=== PATIENT | female | born 1970 | race Caucasian/White ===

== ENCOUNTER 2020-03-03 06:03 | Inpatient (IN) ==
--- NOTE | 2020-02-20 15:57 | PAT Medication Instructions ---
Medication Instructions Date of Service February 20, 2020 Home Medications alprazolam 1 mg PO BID bupropion HCl 150 mg PO QAM cyanocobalamin (vitamin B-12) 1,000 mcg IM DIRECTED lactulose [Constulose] 15 ml PO DAILY PRN plecanatide [Trulance] 3 mg PO QAM rizatriptan 10 mg PO DIRECTED PRN sertraline 150 mg PO QAM zolpidem [Ambien] 10 mg PO HS Continue as directed cyanocobalamin (vitamin B-12) 1,000 mcg IM DIRECTED DO NOT take the morning of surgery lactulose [Constulose] 15 ml PO DAILY PRN plecanatide [Trulance] 3 mg PO QAM Take morning of surgery With a small sip of water, OTHERWISE NOTHING TO EAT OR DRINK AFTER MIDNIGHT: alprazolam 1 mg PO BID bupropion HCl 150 mg PO QAM plecanatide [Trulance] 3 mg PO QAM rizatriptan 10 mg PO DIRECTED PRN (if needed) sertraline 150 mg PO QAM Take evening before surgery alprazolam 1 mg PO BID lactulose [Constulose] 15 ml PO DAILY PRN (if needed) rizatriptan 10 mg PO DIRECTED PRN (if needed) zolpidem [Ambien] 10 mg PO HS Other Notes If you have any questions please call us at [phone] or [phone] or [phone] or [phone]
--- NOTE | 2020-02-21 11:15 | Anesthesiology Consultation ---
Date of Service February 21, 2020 Assessment & Plan (1) Encounter for pre-operative examination: COVID Status: As of 02/20 PAT assessment, patient denies travel to endemic area, known exposure/sick contacts, or symptoms of COVID19. Preoperative COVID19 testing to be completed prior to surgery, pt unsure where/when. Chart Review Chart Review: Acceptable Risk for Surgery and Patient seen in Pre Admission Testing Teaching & Discussion Instructed NPO after midnight before surgery, except medications with 15 cc of water. Medication instructions provided according to the [facility] guidelines. History Surgery Operation Date: 03/03/20 12:55 Proposed Procedures p C6-C7 Anterior Cervical Discectomy and Fusion, Spinal Cord Monitoring - Dale Mcarthur DO Height/Weight Height: 5 ft 3 in Weight: 72.8 kg Allergies Allergy/AdvReac Type Severity Reaction Status Date / Time hydroxychloroquine Allergy shortness Verified 02/20/20 10:16 [From Plaquenil] of breath morphine Allergy Hives Verified 02/20/20 10:16 naproxen Allergy Tachycardia Verified 02/20/20 10:16 Medications Home Medications Medication Instructions Recorded Confirmed Last Taken alprazolam 1 mg PO BID 02/20/20 02/20/20 Unknown bupropion HCl 150 mg PO QAM 02/20/20 02/20/20 Unknown cyanocobalamin (vitamin B-12) 1,000 mcg IM DIRECTED 02/20/20 02/20/20 Unknown lactulose [Constulose] 15 ml PO DAILY PRN 02/20/20 02/20/20 Unknown plecanatide [Trulance] 3 mg PO QAM 02/20/20 02/20/20 Unknown rizatriptan 10 mg PO DIRECTED PRN 02/20/20 02/20/20 Unknown sertraline 150 mg PO QAM 02/20/20 02/20/20 Unknown zolpidem [Ambien] 10 mg PO HS 02/20/20 02/20/20 Unknown Past Medical History Medical History Anxiety Degenerative disc disease Fibromyalgia GERD (gastroesophageal reflux disease) no meds, controlled. HCA B27 positive Hx of colonic polyps Lupus Migraine Osteoarthritis Presence of neurostimulator INSTRUCTED TO BRING CONTROL Spinal stenosis Exercise / Class Metabolic Activity III < 4 Walking/Shop/Light housework (Denies CP or SOB with ambulation on one level) Past Family History Family History Mother Diabetes Grandmother (Maternal) Diabetes Past Surgical History Surgical History History of carpal tunnel release right History of cholecystectomy History of colonoscopy History of esophagogastroduodenoscopy (EGD) History of hysterectomy History of tonsillectomy History of tooth extraction wisdom teeth Hx of foot surgery right Hx of neck surgery hardware to possibly C4-5? can't turn to either side very well. Can't touch chest with chin. pain with leaning head back Past Anesthesia History No Hx of Anesthesia Complications and No Family Hx of Anesthesia Complications History of PONV No Hx of PONV and Hx of Motion Sickness Social History Smoking Status: Former smoker Do You Dip or Chew Tobacco: No Smoking End Date: OVER A YEAR Hx Alcohol Use: No Hx Substance Use: No substance use type: does not use Review of Systems Pt denies any recent chest pain, shortness of breath, palpitations, cough, fever or URI. Physical Exam Vital Signs BP: 141/93 P: 71bpm SPO2: 100% RA T: 98.1 F R: 16 ENMT Mouth: no dental restorations, no chipped teeth and no loose teeth Thyromental Distance: > or= 3.5 Finger Breadths (3.5) Mallampati Class: II Neck normal visual inspection and + limited neck extension Respiratory normal respiratory effort Auscultation: lungs clear to auscultation bilaterally Cardiovascular Rate/Rhythm: regular rate and regular rhythm Heart Sounds: no murmur Extremities: no edema Testing Laboratory Results 02/21/20 11:28 02/21/20 11:28 PT 10.3 Seconds (9.0-12.0) 02/21/20 11:28 INR 1.0 (0.9-1.1) 02/21/20 11:28 APTT 31.7 Seconds (21.0-31.0) H 02/21/20 11:28 Urine Color Yellow 02/21/20 Unknown Urine Appearance Clear (Clear) 02/21/20 Unknown Urine pH 5.0 (4.5-7.5) 02/21/20 Unknown Ur Specific [place]cl[place] 1.011 (1.000-1.030) 02/21/20 Unknown Urine Protein Negative (Negative) 02/21/20 Unknown Urine Glucose (UA) Negative (Negative) 02/21/20 Unknown Urine Ketones Negative (Negative) 02/21/20 Unknown Urine Nitrite Negative (Negative) 02/21/20 Unknown Ur Leukocyte Esterase Negative (Negative) 02/21/20 Unknown Blood Type B Positive 02/21/20 11:28 Antibody Screen NEGATIVE 02/21/20 11:28 Electrocardiogram Date: 02/21/20 Findings: + NSR @ (71bpm) Chest X-Ray Date: 02/21/20 Findings: + NAD
--- NOTE | 2020-02-21 12:09 | XRay Report ---
XR chest Pre-admission PA/Lat CLINICAL HISTORY: Preoperative chest COMPARISON STUDY: No previous studies for comparison. FINDINGS: The cardiac and mediastinal contours are normal. There is no evidence of focal pulmonary co nsolidation. There is no evidence of failure. No pleural effusions are visualized.[Note is made of a spinal stimulator. There are postsurgical changes present within the cervical spine. There are right upper quadrant surgical clips consistent with a prior cholecystectomy. IMPRESSION: No active disease in the chest. ACT 112: Negative or not required by law. Electronically signed by: Bennie Barth M.D. 02/21/2020 12:08 PM
[2020-02-21 13:00] LABS: Basophils # (auto) 0.09 K/uL (0-0.2); Basophils % (auto) 1.1 %; Eosinophils % (auto) 4.9 %; Hematocrit (blood only) 37.2 % (37-47); Immature Granulocytes # (auto) 0.01 K/uL (0.00-0.02); Immature Granulocytes % (auto) 0.1 %; Lymphocytes # (auto) 3.29 K/uL (1.2-3.4); Lymphocytes % (auto) 40.2 %; Mean Corpuscular Hemoglobin 30.2 pg (25-34); Mean Corpuscular Hgb Conc 32.3 g/dL (32-36); Mean Corpuscular Volume 93.5 fL (80-100); Mean Platelet Volume 11.3 fL (7.4-10.4); Monocytes # (auto) 0.62 K/uL (0.11-0.59); Monocytes % (auto) 7.6 %; Neutrophils # (auto) 3.77 K/uL (1.4-6.5); Neutrophils % (auto) 46.1 %; Platelet Count 369 K/uL (130-400); RDW Coefficient of Variation 14.3 % (11.5-14.5); RDW Standard Deviation 48.9 fL (36.4-46.3); Red Blood Count 3.98 M/uL (4.2-5.4); White Blood Count 8.18 K/uL (4.8-10.8)
[2020-02-21 13:13] LABS: Appearance Urine Clear (Clear); Bilirubin Urine Negative (Negative); Blood Urine Negative (Negative); Color Urine Yellow; Glucose Urine UA Negative (Negative); Ketones Urine Negative (Negative); Leukocyte Esterase Urine Negative (Negative); Nitrite Urine Negative (Negative); Protein Urine Negative (Negative); Specific Gravity Urine 1.011 (1.000-1.030); Urobilinogen Urine Negative (Negative)
[2020-02-21 13:23] LABS: BUN Creatinine Ratio 11.1 (10-20); Calcium 8.9 mg/dl (8.5-10.1); Creatinine Clr Calc Pharmacy 56.1 ml/min; Est GFR (Non-African American) 55.2; Potassium 4.1 mmol/L (3.5-5.1)
[2020-02-21 13:24] LABS: Partial Thromboplastin Ratio 1.1; Partial Thromboplastin Time 31.7 Seconds (21.0-31.0); Prothrombin Time 10.3 Seconds (9.0-12.0)
--- NOTE | 2020-02-21 23:25 | Electrocardiogram Report ---
Test Reason : Blood Pressure : / mmHG Vent. Rate : 071 BPM Atrial Rate : 071 BPM P-R Int : 130 ms QRS Dur : 082 ms QT Int : 412 ms P-R-T Axes : 064 045 018 degrees QTc Int : 447 ms Normal sinus rhythm Normal ECG No previous ECGs available Confirmed by Jameson Gutierrez ([id number]) on 02/21/2020 11:25:23 PM Referred By: Dale Mcarthur Confirmed By:Jameson Gutierrez
[~2020-03-03 06:03] MED LIST: ACETAMINOPHEN 500 MG TAB PO SCH; CEFAZOLIN 1000MG 1,000 MG/7.5 ML SYR IV SCH; CeleBREX 200 MG CAP PO SCH; GABAPENTIN 900 MG DOSE PO SCH; LR 15ML/HR IV SCH
[2020-03-03] MEDS ORDERED: BACITRACIN INJ 50,000 UNIT VIAL ONE ×2 (07:09→08:21)
[2020-03-03] MEDS ORDERED: DEXAMETHASONE SOD INJ 4 MG/ML VIAL ONE (07:14)
[2020-03-03] MEDS ORDERED: LIDOCAINE HCL 2% 2 ML VIAL/AMP(20MG/ML) INFIL ONE (07:14)
[2020-03-03] MEDS ORDERED: MIDAZOLAM HCL 1 MG/ML 2ML VIAL ONE (07:14)
[2020-03-03] MEDS ORDERED: NEOSTIGMINE METHYLSULFATE 5 MG/5 ML SYR ONE (07:14)
[2020-03-03] MEDS ORDERED: GLYCOPYRROLATE 0.2 MG/ML VIAL ONE ×2 (07:14→09:24)
[2020-03-03] MEDS ORDERED: PROPOFOL IV EMULSION 10 MG/ML 20 ML VIAL IV ONE (07:14)
[2020-03-03] MEDS ORDERED: fentaNYL citrate 100 MCG/2 ML VIAL ONE (07:14)
[2020-03-03] MEDS ORDERED: ONDANSETRON INJ 2 MG/ML 2 ML VIAL ONE ×2 (07:14→08:32)
[2020-03-03] MEDS ORDERED: ePHEDrine sulfate 50 MG/ML AMP IV PRN (07:19)
[2020-03-03] MEDS ORDERED: ONDANSETRON INJ 2 MG/ML 2 ML VIAL IV PRN ×2 (07:19→11:32)
[2020-03-03] MEDS ORDERED: ATROPINE SULFATE 0.1 MG/ML 10ML SYR IV PRN (07:19)
[2020-03-03] MEDS ORDERED: PROPOFOL IV EMULSION 10 MG/ML 100 ML VIAL IV ONE (07:25)
--- NOTE | 2020-03-03 07:36 | History & Physical Report ---
Date of Service March 03, 2020 Assessment & Plan (1) Cervical stenosis of spinal canal: C6-C7 anterior cervical discectomy and fusion Present on Admission?: Yes History of Present Illness Chief Complaint: Neck and arm pain Primary Care Provider: Bobby Byers MD This is a 50-year-old female presents with chronic persistent neck and arm pain. After failing extensive course of nonoperative care she is here for surgical intervention. Allergies Allergy/AdvReac Type Severity Reaction Status Date / Time hydroxychloroquine Allergy shortness Verified 03/03/20 06:24 [From Plaquenil] of breath morphine Allergy Hives Verified 03/03/20 06:24 naproxen Allergy Tachycardia Verified 03/03/20 06:24 Home Medications Home Medications Medication Instructions Recorded Confirmed Type alprazolam 1 mg PO BID 02/20/20 03/03/20 History bupropion HCl 150 mg PO QAM 02/20/20 03/03/20 History cyanocobalamin (vitamin B-12) 1,000 mcg IM DIRECTED 02/20/20 03/03/20 History lactulose [Constulose] 15 ml PO DAILY PRN 02/20/20 03/03/20 History plecanatide [Trulance] 3 mg PO QAM 02/20/20 03/03/20 History rizatriptan 10 mg PO DIRECTED PRN 02/20/20 03/03/20 History sertraline 150 mg PO QAM 02/20/20 03/03/20 History zolpidem [Ambien] 10 mg PO HS 02/20/20 03/03/20 History Past Med/Surg History Medical History Anxiety Degenerative disc disease Fibromyalgia GERD (gastroesophageal reflux disease) no meds, controlled. HCA B27 positive Hx of colonic polyps Lupus Migraine Osteoarthritis Presence of neurostimulator INSTRUCTED TO BRING CONTROL Spinal stenosis Surgical History History of carpal tunnel release right History of cholecystectomy History of colonoscopy History of esophagogastroduodenoscopy (EGD) History of hysterectomy History of tonsillectomy History of tooth extraction wisdom teeth Hx of foot surgery right Hx of neck surgery hardware to possibly C4-5? can't turn to either side very well. Can't touch chest with chin. pain with leaning head back Family History Mother Diabetes Grandmother (Maternal) Diabetes Social History Preferred Language: Yoruba Communication Ability: Effective Unit Leader Required: No Beliefs That Will Affect Care: None Current Living Situation: Spouse Other Information That Helps Us Care for You: No Feels Safe at Home: Yes Safety Concerns: Feels Safe At This Time Smoking Status: Former smoker Do You Dip or Chew Tobacco: No ; Smoking End Date: OVER A YEAR ; Second Hand Exposure: No ; Tobacco Cessation Education Requested by Patient: No Hx Alcohol Use: No Hx Substance Use: No Physical Exam Physical Exam: Patient is alert and oriented neurologically intact Heart regular rate and rhythm Lungs clear to auscultation Results & Data Vital Signs (Past 12 Hours) Vital Signs Temp Pulse Resp BP Pulse Ox 03/03/20 06:31 36.8 C 74 16 139/87 97
[2020-03-03] MEDS ORDERED: FLOSEAL HEMOSTATIC MATRIX 10ML TOP ONE (08:30)
[2020-03-03] MEDS ORDERED: ROCURONIUM BROMIDE 10 MG/ML 5 ML VIAL IV ONE (08:32)
[2020-03-03] MEDS ORDERED: PHENYLEPHRINE 100MCG/ML 5ML SYR ONE (08:32)
[2020-03-03] MEDS ORDERED: LARYING-O-JET KIT (LTA) ONE (08:32)
[2020-03-03] MEDS ORDERED: ePHEDrine sulfate 50 MG/ML SYR ONE (08:32)
[2020-03-03] MEDS ORDERED: SUCCINYLCHOLINE CHLORIDE 20 MG/ML 10 ML VIAL IV ONE (08:32)
[2020-03-03] MEDS ORDERED: HYDROmorphone INJ 2 MG/ML SYR/VIAL ONE (08:35)
--- NOTE | 2020-03-03 09:27 | Operative Report ---
Post Operative Report Pre & Post Diagnosis Operation Date: 03/03/20 07:45 Pre-Op Diagnosis: Cervical spinal stenosis with radiculopathy Post-Op Diagnosis: Same I identified the patient and participated in the time-out.: Yes Procedure Operation Date: 03/03/20 07:45 Actual Procedures #1 removal of anterior cervical plate at C4-5 and C5-6. #2 exploration of fusion C4-5 and C5-6. #3 anterior cervical discectomy with bilateral foraminotomies C6-C7. #4 anterior cervical arthrodesis C6-C7. #5 placement of 9 mm Spira titanium cage filled with DBM at C6-C7. #6 application of luz plate and screws across C6 and C7. Surgeon Dale Mcarthur, Technical Manager [employer] Estimated Blood Loss 25 Findings Consistent with Post-Op Diagnosis Specimens None Indications This is a 50-year-old female who presents with above-mentioned diagnosis after failed extensive course of nonoperative care is here for the above-mentioned procedure. Description of Procedure Patient was met with preop the case discussed all questions were addressed. That point patient was taken back to the operative suite underwent intubation and placed in supine position the Homer table the head [employer] gaming department head. All bony prominences well-padded eyes inspected to ensure no external pressure placed upon them. This point the anterior cervical spine was prepped and draped in normal sterile fashion. I then created a longitudinal incision along the right anterior aspect of the cervical spine extending from C4-C6. Sharp dissection with assistance of bipolar electrocautery was performed down to and exposing the anterior cervical spine. I then removed the plate at C4-C6. I explored the fusion mass noting it to be intact. M placed a self-retaining retractor at C6-C7 performed a complete discectomy of C6-7 out to the uncovertebral joints bilaterally. I did remove all posterior annular fibers and longitudinal ligament to perform bilateral foraminotomies. Endplates were then burred to subcortical bleeding bone and a 9 mm Spira cage filled with DBM tapped in position. Distracting apparatus was removed all anterior osteophytes burred to a smooth cortical surface and a 5 complete and screws applied with assistance of fluoroscopy. Incision was then copiously irrigated explored to ensure no d amage to surrounding structures remaining bleeding. 10 round GERALDO drain inserted. The incision was then closed with 2 Vicryl in a fashion of 4 Monocryl for final skin closure. Steri-Strip sterile dressing was placed. Patient will continue to PACU stable condition. Please note spinal cord monitoring was utilized that the procedure no changes noted. Lastly Su Rcih was present at the entire p rocedure involved in patient positioning complex portions of the surgery and final skin closure. I attest to the content of the Intraoperative Record and any orders documented therein. Any exceptions are noted below.
--- NOTE | 2020-03-03 09:47 | Fluoroscopy Report ---
FL cervical 2-3V CLINICAL HISTORY: ACDF C6-C7 COMPARISON STUDY: None FLUOROSCOPY TIME: 8 seconds. NUMBER OF FLUOROSCOPIC IMAGES: 2 FINDINGS: 2 intraoperative fluoroscopic spot images are provided for interpretation. There are postsu rgical changes of what is likely prior C4-5, and C5-6 discectomies interbody fusions. There is eviden ce for what is likely a recent C6-7 anterior cervical discectomy and fusion with anterior metallic pl ate and interbody spacer. Note is made of presumed cervical ribs. There is gauze present within the a nterior soft tissues. IMPRESSION: Postsurgical changes of a C6-C7 anterior cervical discectomy and fusion. ACT 112: Negative or not required by law. Electronically signed by: Bennie Barth M.D. 03/03/2020 9:45 AM
[2020-03-03] MEDS: fentaNYL citrate 100 MCG/2 ML VIAL IV PRN ×3 (10:14→10:51)
--- NOTE | 2020-03-03 11:04 | Anesthesiology Progress Note ---
Date of Service March 03, 2020 Anesthesia Post Procedure Vital Signs Vital Signs: Temp Pulse Pulse Resp BP BP Pulse Ox 03/03/20 10:55 97.3 F L 76 12 104/72 93 03/03/20 10:45 77 12 115/79 95 03/03/20 10:35 86 12 122/84 97 03/03/20 10:25 82 12 117/83 97 03/03/20 10:15 87 14 136/93 98 03/03/20 10:05 88 14 135/88 98 03/03/20 09:55 90 14 138/89 98 03/03/20 09:46 96.8 F L 100 H 16 139/97 97 03/03/20 06:31 98.2 F 74 16 139/87 97 Pain Intensity Posterior Back: Pain Intensity: 8 Anterior Neck: Pain Intensity: 4 Transfer of Care Handoff Completed per policy Notes Mental Status: alert / awake / arousable and participated in evaluation Patient Amnestic to Procedure: Yes Nausea / Vomiting: adequately controlled Pain: adequately controlled Airway Patency, RR, SpO2: stable & adequate BP & HR: stable & adequate Hydration State: stable & adequate Anesthetic Complications: no major complications apparent and Pt Satisfied with anesthetic care
[2020-03-03] MEDS ORDERED: ONDANSETRON 4 MG OD TAB PO PRN (11:32)
[2020-03-03] MEDS ORDERED: HYDROmorphone INJ 1 MG/ML SYRINGE IV PRN (11:32)
[2020-03-03] MEDS ORDERED: DEXAMETHASONE SOD PHOSPHATE 8 MG in SYRINGE 0 ML IV PRN (11:32)
[2020-03-03] MEDS ORDERED: HYDROmorphone INJ 0.5 MG/0.5 ML SYR IV PRN (11:32)
[2020-03-03] MEDS ORDERED: RIZATRIPTAN BENZOATE 10 MG TAB PO PRN (11:32)
[2020-03-03] MEDS ORDERED: ACETAMINOPHEN 500 MG TAB PO PRN (11:32)
[2020-03-03] MEDS ORDERED: PROMETHAZINE HCL 12.5 MG in SODIUM CHLORIDE 0.9% 50 ML IV PRN (11:32)
[2020-03-03] MEDS ORDERED: METOCLOPRAMIDE HCL INJ 5 MG/ML 2 ML VIAL IV PRN (11:32)
[2020-03-03] MEDS ORDERED: LORazepam 0.5 MG TAB PO PRN (11:32)
[2020-03-03] MEDS ORDERED: MAGNESIUM HYDROXIDE SUSP 30 ML UDC PO PRN (11:32)
[2020-03-03] MEDS ORDERED: LORazepam 0.5 MG/1 ML VIAL IV PRN (11:32)
[2020-03-03] MEDS ORDERED: ACETAMINOPHEN 1,000 MG/100 ML VIAL IV PRN (11:32)
[2020-03-03] MEDS ORDERED: DO NOT ADMINISTER FLU VACCINE PRN (11:32)
[2020-03-03] MEDS ORDERED: TRAMADOL HCL 50 MG TABLET PO PRN (11:32)
[2020-03-03] MEDS ORDERED: SOD PHOSPHATE/SOD BIPHOSPHATE ENEMA 132 ML BTL PR PRN (11:32)
[2020-03-03] MEDS ORDERED: FAMOTIDINE 20 MG TAB PO PRN (11:32)
[2020-03-03] MEDS ORDERED: DO NOT ADMINISTER PNEUMOCOCCAL VACCINE PRN (11:32)
[2020-03-03] MEDS ORDERED: NALOXONE HCL 0.4 MG/1 ML VIAL/CARP IV PRN (11:32)
[2020-03-03] MEDS ORDERED: RACEPINEPHRINE 2.25% NEBU SOLN 0.5 ML VIAL INH PRN (11:32)
[2020-03-03] MEDS ORDERED: ALUMINUM/MAGNESIUM SUSP 30 ML UDC PO PRN (11:32)
[2020-03-03] MEDS ORDERED: LACTULOSE SYRUP 10 GM/15 ML BTL 960 ML PO PRN (11:43)
[2020-03-03] MEDS: LACTATED RINGER'S 1,000 ML IV SCH ×2 (12:09→20:41)
[2020-03-03] MEDS: OXYCODONE HCL IR 5 MG TAB (IMMEDIATE RELEASE) PO PRN ×3 (12:17→23:45)
[2020-03-03] MEDS: DEXAMETHASONE SOD PHOSPHATE 6 MG in SYRINGE 0 ML IV SCH ×2 (14:29→22:35)
[2020-03-03] MEDS: CEFAZOLIN 1000MG 1,000 MG/7.5 ML SYR IV SCH ×2 (16:27→23:32)
[2020-03-03] MEDS ORDERED: ZOLPIDEM TARTRATE 10 MG TAB PO SCH (21:00)
[2020-03-03] MEDS ORDERED: DOCUSATE SODIUM/SENNA 50/8.6MG TAB PO SCH (21:00)
[2020-03-03] MEDS: ALPRAZolam 0.5 MG TABLET PO SCH (21:49)
[2020-03-04] MEDS: OXYCODONE HCL IR 5 MG TAB (IMMEDIATE RELEASE) PO PRN ×2 (04:13→12:20)
[2020-03-04 06:06] LABS: Basophils # (auto) 0.01 K/uL (0-0.2); Basophils % (auto) 0.1 %; Hematocrit (blood only) 34.8 % (37-47); Hemoglobin 11.1 g/dL (12.0-16.0); Immature Granulocytes # (auto) 0.01 K/uL (0.00-0.02); Immature Granulocytes % (auto) 0.1 %; Lymphocytes # (auto) 1.14 K/uL (1.2-3.4); Lymphocytes % (auto) 10.1 %; Mean Corpuscular Hemoglobin 30.1 pg (25-34); Mean Corpuscular Hgb Conc 31.9 g/dL (32-36); Mean Corpuscular Volume 94.3 fL (80-100); Mean Platelet Volume 10.9 fL (7.4-10.4); Monocytes # (auto) 0.71 K/uL (0.11-0.59); Monocytes % (auto) 6.3 %; Neutrophils # (auto) 9.42 K/uL (1.4-6.5); Neutrophils % (auto) 83.4 %; Platelet Count 334 K/uL (130-400); RDW Coefficient of Variation 14.4 % (11.5-14.5); RDW Standard Deviation 49.9 fL (36.4-46.3); Red Blood Count 3.69 M/uL (4.2-5.4); White Blood Count 11.29 K/uL (4.8-10.8)
[2020-03-04] MEDS: DEXAMETHASONE SOD PHOSPHATE 6 MG in SYRINGE 0 ML IV SCH (06:20)
[2020-03-04 06:42] LABS: BUN Creatinine Ratio 7.9 (10-20); Calcium 9.1 mg/dl (8.5-10.1); Creatinine Clr Calc Pharmacy 58.3 ml/min; Est GFR (African American) 68.3; Est GFR (Non-African American) 58.9; Potassium 4.2 mmol/L (3.5-5.1)
--- NOTE | 2020-03-04 08:01 | Anesthesiology Progress Note ---
Date of Service March 04, 2020 Anesthesia Post Procedure Vital Signs Vital Signs: Temp Pulse Pulse Resp BP BP Pulse Ox 03/04/20 07:42 36.7 C 79 16 96/64 L 94 03/04/20 07:26 78 18 95 03/04/20 05:30 36.5 C 76 16 105/70 97 03/04/20 03:30 36.4 C L 84 16 116/72 98 03/04/20 03:17 84 16 98 03/04/20 01:42 36.4 C L 86 16 125/75 93 03/03/20 23:30 36.4 C L 74 16 105/69 100 03/03/20 23:24 69 16 99 03/03/20 21:48 36.3 C L 86 16 105/78 94 03/03/20 19:39 36.3 C L 73 15 105/71 100 03/03/20 18:45 77 16 99 03/03/20 17:41 36.5 C 82 20 108/71 95 03/03/20 15:34 36.4 C L 65 16 99/71 L 100 03/03/20 15:10 82 15 100 03/03/20 14:29 36.4 C L 77 14 124/83 100 03/03/20 13:30 36.5 C 75 16 95/72 L 98 03/03/20 12:30 36.5 C 82 14 104/69 96 03/03/20 12:00 36.4 C L 78 14 98/64 L 97 03/03/20 11:47 83 18 96 03/03/20 11:30 36.6 C 84 14 105/72 97 03/03/20 11:15 80 12 105/72 97 03/03/20 11:05 83 12 105/70 97 03/03/20 10:55 36.3 C L 76 12 104/72 93 03/03/20 10:45 77 12 115/79 95 03/03/20 10:35 86 12 122/84 97 03/03/20 10:25 82 12 117/83 97 03/03/20 10:15 87 14 136/93 98 03/03/20 10:05 88 14 135/88 98 03/03/20 09:55 90 14 138/89 98 03/03/20 09:46 36 C L 100 H 16 139/97 97 Pulse Ox 03/04/20 07:42 03/04/20 07:26 03/04/20 05:30 03/04/20 03:30 03/04/20 03:17 03/04/20 01:42 03/03/20 23:30 03/03/20 23:24 03/03/20 21:48 03/03/20 19:39 03/03/20 18:45 03/03/20 17:41 03/03/20 15:34 03/03/20 15:10 03/03/20 14:29 03/03/20 13:30 03/03/20 12:30 03/03/20 12:00 03/03/20 11:47 03/03/20 11:30 97 03/03/20 11:15 03/03/20 11:05 03/03/20 10:55 03/03/20 10:45 03/03/20 10:35 03/03/20 10:25 03/03/20 10:15 03/03/20 10:05 03/03/20 09:55 03/03/20 09:46 Pain Intensity Posterior Back: Pain Intensity: 8 Anterior Neck: Pain Intensity: 8 Notes Mental Status: alert / awake / arousable and participated in evaluation Patient Amnestic to Procedure: Yes Nausea / Vomiting: adequately controlled Pain: adequately controlled Airway Patency, RR, SpO2: stable & adequate BP & HR: stable & adequate Hydration State: stable & adequate Anesthetic Complications: no major complications apparent and Pt Satisfied with anesthetic care
[2020-03-04] MEDS: ALPRAZolam 0.5 MG TABLET PO SCH (08:47)
[2020-03-04] MEDS: POLYETHYLENE (MIRALAX) 17 GM PACK PO SCH ×2 (08:48→11:30)
[2020-03-04] MEDS ORDERED: BuPROPion XL 150 MG TABCR PO SCH (09:00)
[2020-03-04] MEDS ORDERED: SERTRALINE HCL 50 MG TABLET PO SCH (09:00)
--- NOTE | 2020-03-04 10:40 | Discharge Summary ---
Date of Service March 04, 2020 Admission HPI Per Admitting Provider This is a 50-year-old female presents with chronic persistent neck and arm pain. After failing extensive course of nonoperative care she is here for surgical intervention. Principal Diagnosis Cervical spinal stenosis with radiculopathy Discharge Data Allergies Allergy/AdvReac Type Severity Reaction Status Date / Time hydroxychloroquine Allergy shortness Verified 03/03/20 06:24 [From Plaquenil] of breath morphine Allergy Hives Verified 03/03/20 06:24 naproxen Allergy Tachycardia Verified 03/03/20 06:24 Procedures Performed Operation Date: 03/03/20 07:45 Actual Procedures p C6-C7 Anterior Cervical Discectomy and Fusion, Spinal Cord Monitoring(Not Applicable) - Dale Mcarthur DO s Hardware removal C4-6(Not Applicable) - Dale Mcarthur DO Ordered Studies 03/03/20 07:45 FL cervical 2-3V Routine FL fluoroscopy <1hr Routine Hospital Course (1) Cervical stenosis of spinal canal: Patient went anterior cervical discectomy and fusion tolerated so was taken to the orthopedic floor postoperatively postop day 1 her arm symptoms were improved she is swallowing well. No hoarseness. Strength intact. GERALDO drain decreasing probably. Subsequent discharge home. Discharge orders instructions from the chart for further review. Total Time Total Time Spent Total Time Spent (In Minutes): 20 minutes Discharge Plan Discharge Items Patient Disposition: Home - Self-Care Reason For Visit: Spinal Stenosis, Cervical Region Discharge Diagnosis: Cervical spinal stenosis with radiculopathy Activity: As commented below Non-emergency contact: Primary Care Provider Call non-emergency contact if: you have any medication questions Follow-up/Referrals: Bobby Byers MD [Primary Care Provider] - Diet: Regular Addtl Attending Provider Instructions: ACTIVITY RECOMMENDATIONS: SELF CARE INSTRUCTIONS AFTER CERVICAL FUSIONS 1. No smoking. Smoking drastically decreases the chance of a solid fusion. 2. No bending, lifting more than 5 pounds, or twisting (roll like a log when turning in bed). 3. You may shower 3 days after surgery. Thoroughly dry wound. Do not soak in the tub. 4. Cervical collar: Must be worn at all times including sleeping. You may remove the brace only to bath, eat and if you are sitting in a recliner. 5. Please walk as much as you can for exercise. Gradually increase the distance that you walk as your endurance increases. SPECIAL CARE INSTRUCTIONS: VERY IMPORTANT TO READ AND REVIEW A. Do not take any anti-inflammatory medications (i.e. Indocin, Advil, Aspirin, Naprosyn, Aleve, Motrin, etc.) as these may inhibit the chance of a solid fusion. Tylenol is okay to take. B. Your surgical incision has been closed with a cosmetic suture under the skin that will dissolve in about 6 weeks. In 14 days, you can use a pair of clean scissors and cut the suture that is left outside of the skin at the ends of your incision. C. Complications are uncommon, but please contact us if you have any signs or symptoms of: 1. wound infection (fever higher than 102.5 degrees F, redness, separation of wound, drainage, or increasing pain from the incision) 2. blood clots in legs (pain, swelling, redness and warmth in legs) 3. urinary tract infection (fever higher than 102.5 degrees, burning upon urination or increased frequency of urination) 4. nerve problems (inability to walk on your toes or heels, numbness, loss of bowel or bladder control) 5. any other symptoms that concern you. D. Please call the office at if you have any concerns or questions about your operation or recovery. MANAGING PAIN AFTER SPINAL SURGERY 1. Narcotic medication is intended for short-term use and will be provided for surgical pain. Surgical pain usually lasts for a period of 4-6 weeks. Narcotic medication includes Percocet, Vicodin, Darvocet, Tylenol #3 or Lortab. 2. Longer-term pain is more appropriately treated with non-narcotic medication such as Tylenol ES. 3. Muscle spasm is not appropriately treated with narcotics. Muscle relaxers s uch as Soma, Flexeril or Skelaxin can be used along with Tylenol ES. 4. Remember that we all live with some "aches and pains". This is not unusual or uncommon after an injury or as we get older. 5. We will provide appropriate medication within the normal guidelines of their prescribed use. We will also be very cautious and aware of potential abuse and extended duration of patients' medication needs. 6. Please allow 2-3 days to process refills. Prescriptions will not be mailed but must be picked up at the office. FOLLOW UP VISIT: Keep your scheduled follow-up appointment. Any questions, please call the office at . Pending Studies at Discharge: No Stand-Alone Forms: My [facility], Smoking Cessation Medications and DC Order Prescriptions: New oxycodone 5 mg tablet 5 mg PO Q6H PRN (Reason: pain, severe) Qty: 12 RF: 0 Continued alprazolam 1 mg Tablet 1 mg PO BID RF: 0 rizatriptan 10 mg Tablet 10 mg PO DIRECTED PRN (Reason: Migraine Headache) RF: 0 sertraline 100 mg Tablet 150 mg PO QAM RF: 0 zolpidem [Ambien] 10 mg Tablet 10 mg PO HS RF: 0 bupropion HCl 150 mg Tablet Extended Release 24 Hr 150 mg PO QAM RF: 0 lactulose [Constulose] 10 gram/15 mL Solution 15 ml PO DAILY PRN (Reason: Constipation) RF: 0 cyanocobalamin (vitamin B-12) 1,000 mcg/mL Kit 1,000 mcg IM DIRECTED RF: 0 Trulance 3 mg Tablet 3 mg PO QAM RF: 0 Discharge Orders: Discharge Order (Routine); Ordered 03/04/20 Ordered By: Dale Mcarthur Admission Data Admit Date/Time: 03/03/20 10:29 Attending Provider: Dale Mcarthur Admit Provider: Dale Mcarthur Primary Care Provider: Bobby Byers
[2020-03-04] MEDS ORDERED: DEXAMETHASONE SOD PHOSPHATE 6 MG in SYRINGE 0 ML IV ONE (11:00)
[2020-03-05] MEDS ORDERED: bisacodyL 10 MG SUPP PR PRN (09:28)
== END 2020-03-04 13:39 | disposition home or self-care (01) | DRG 473 ==
LOC: ASU 06:03 → 3E 10:29